=== PATIENT | female | born 1985 | race American Indian/Alaskan Native ===

== ENCOUNTER 2022-01-31 15:46 | Emergency (ER) | payer MEDICAID ==
[2022-01-31 15:56] VITALS: BP 178/117
--- NOTE | 2022-01-31 16:40 | Emergency Department Report ---
ED General Adult HPI - General Chief complaint: Recheck/Abnormal Lab/Rx Stated complaint: [facility] MEDS Source: patient Mode of arrival: Ambulatory Limitations: No Limitations - History of Present Illness Initial comments: Patient is a 36-year-old -[place] female with a history of GERD and hypertension who presents to the ED requesting for medication refill for her hypertension and GERD which she ran out of about a month or 2 ago. Patient states that she has previously taken omeprazole 40 mg daily for GERD and metoprolol 25 mg twice daily. Patient states that she has not been on any of these medications for over 2 months. Patient denies dizziness, syncope, chest pain, nausea and vomiting, diarrhea, shortness of breath, cough, abdominal pain, sore throat or palpitations. MD Complaint: Medication refill for hypertension and GERD -: Sudden, month(s) (2) Location: abdomen Radiation: non-radiation Consistency: intermittent Improves with: none Worsens with: none Associated Symptoms: denies other symptoms. denies: confusion, chest pain, cough, diaphoresis, fever/chills, headaches, loss of appetite, malaise, nausea/vomiting, rash, seizure, shortness of breath, syncope, weakness Treatments Prior to Arrival: none - Related Data Previous Rx's Medication Instructions Recorded Last Taken Type Metoprolol [Lopressor TAB] 25 mg PO Q12H #60 tablet 01/31/22 Unknown Rx Omeprazole 40 mg PO DAILY #60 cap 01/31/22 Unknown Rx Allergies Allergy/AdvReac Type Severity Reaction Status Date / Time No Known Allergies Allergy Verified 01/31/22 15:53 ED Review of Systems ROS: Stated complaint: MH MEDS Other details as noted in HPI Constitutional: denies: chills, fever Eyes: denies: eye pain, eye discharge, vision change ENT: denies: ear pain, throat pain Respiratory: denies: cough, shortness of breath, wheezing Cardiovascular: denies: chest pain, palpitations Endocrine: no symptoms reported Gastrointestinal: denies: abdominal pain, nausea, vomiting, diarrhea Genitourinary: denies: urgency, dysuria, discharge Musculoskeletal: denies: back pain, joint swelling, arthralgia Skin: denies: rash, lesions Neurological: denies: headache, weakness, paresthesias Psychiatric: denies: anxiety, depression Hematological/Lymphatic: denies: easy bleeding, easy bruising ED Past Medical Hx - Past Medical History Hx Hypertension: Yes Hx GERD: Yes - Medications Home Medications: Home Medications Medication Instructions Recorded Confirmed Last Taken Type Metoprolol [Lopressor TAB] 25 mg PO Q12H #60 tablet 01/31/22 Unknown Rx Omeprazole 40 mg PO DAILY #60 cap 01/31/22 Unknown Rx ED Physical Exam - General Limitations: No Limitations General appearance: alert, in no apparent distress - Head Head exam: Present: atraumatic, normocephalic, normal inspection - Eye Eye exam: Present: normal appearance, PERRL, EOMI Pupils: Present: normal accommodation - ENT ENT exam: Present: normal exam, normal orophraynx, mucous membranes moist, TM's normal bilaterally, normal external ear exam - Neck Neck exam: Present: normal inspection, full ROM - Respiratory Respiratory exam: Present: normal lung sounds bilaterally. Absent: respiratory distress, wheezes, rales, rhonchi, stridor, chest wall tenderness, accessory muscle use, decreased breath sounds, prolonged expiratory - Cardiovascular Cardiovascular Exam: Present: normal rhythm, tachycardia, normal heart sounds. Absent: systolic murmur, diastolic murmur, rubs, gallop - GI/Abdominal GI/Abdominal exam: Present: soft, normal bowel sounds. Absent: tenderness, guarding, rebound, hyperactive bowel sounds, hypoactive bowel sounds, organomegaly - Extremities Exam Extremities exam: Present: normal inspection, full ROM, normal capillary refill. Absent: tenderness - Back Exam Back exam: Present: normal inspection, full ROM. Absent: tenderness, CVA tenderness (R), CVA tenderness (L), muscle spasm, paraspinal tenderness, vertebral tenderness - Neurological Exam Neurological exam: Present: alert, oriented X3, CN II-XII intact, normal gait, reflexes normal - Psychiatric Psychiatric exam: Present: normal affect, normal mood, anxious - Skin Skin exam: Present: warm, dry, intact, normal color. Absent: rash ED Course Vital Signs 01/31/22 15:55 Temperature 98.0 F Pulse Rate 105 H Respiratory 24 Rate Blood Pressure 178/117 O2 Sat by Pulse 97 Oximetry ED Medical Decision Making - Medical Decision Making This is a 36-year-old -[place] female with a history of GERD and hyp ertension who presents to the ED requesting for medication refill for her hypertension and GERD which she ran out of about a month or 2 ago. Patient states that she has previously taken omeprazole 40 mg daily for GERD and metoprolol 25 mg twice daily. Patient states that she has not been on any of these medications for over 2 months. In the ED, patient is alert and oriented x3 and is not in any distress. Patient however is anxious, tachycardic, hypertensive but afebrile in triage. Patient was discharged home on medications and advised to follow-up with her primary care physician in 7 to 10 days for reevaluation or return to the ED immediately if symptoms get worse. - Differential Diagnosis Uncontrolled hypertension; medication refilled; Critical care attestation.: If time is entered above; I have spent that time in minutes in the direct care of this critically ill patient, excluding procedure time. ED Disposition Clinical Impression: Uncontrolled stage 2 hypertension, Medication refill Disposition: 01 HOME / SELF CARE / HOMELESS Is pt being admited?: No Does the pt Need Aspirin: No Condition: Stable Instructions: Hypertension (ED), Hypertension, Adult, [id number] Additional Instructions: Take medications as advised, drink plenty of fluids and follow-up with your primary care physician in 7 to 10 days for reevaluation. Return to the ED immediately if symptoms get worse. Prescriptions: Metoprolol [Lopressor TAB] 25 mg PO Q12H #60 tablet Omeprazole 40 mg PO DAILY #60 cap Referrals: [facility] [Provider Group] - 7-10 days Time of Disposition: 16:43 Print Language: SWEDISH
== END 2022-01-31 17:06 | disposition home or self-care (01) ==
LOC: ED 15:46
DX: I10 Essential (primary) hypertension (principal); Z76.0 Encounter for issue of repeat prescription
CPT/HCPCS: 99282

== ENCOUNTER 2022-02-01 15:22 | Emergency (ER) | payer MEDICAID ==
[2022-02-01 16:25] VITALS: BP 173/116
== END 2022-02-01 20:00 | disposition left against medical advice (07) ==
LOC: ED 15:22
DX: T78.40XA Allergy, unspecified, initial encounter (principal); Z53.21 Procedure and treatment not carried out due to patient leaving prior to being seen by health care provider; X58.XXXA Exposure to other specified factors, initial encounter